=== PATIENT | male | born 1970 | race Caucasian/White ===

== ENCOUNTER → 2019-01-24 | Emergency (ER) | payer BC ==
[~2019-01-24] VITALS: Ht 182.9 cm; Wt 129.7 kg
[~2019-01-24] MED LIST: HYDROCHLOROTH12.5 M1 PO; KEFLEX500 M1 PO; LISINOPRIL10 MG PO; NORCO 5-325 TA1 EAC1 PO
[2019-01-24 18:31] VITALS: BP 156/90
== END ==
LOC: M.ERS 18:25
DX: S61.217A Laceration without foreign body of left little finger without damage to nail, initial encounter (principal); W26.0XXA Contact with knife, initial encounter; Y93.89 Activity, other specified; Y92.89 Other specified places as the place of occurrence of the external cause; Y99.8 Other external cause status